=== PATIENT | male | born 1960 | race American Indian/Alaskan Native ===

== ENCOUNTER 2017-02-26 21:05 | Emergency (ER) | payer SELFPAY ==
[2017-02-26 21:35] VITALS: BP 146/94
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
== END 2017-02-27 05:50 | disposition left against medical advice (07) ==
LOC: ED 21:05
DX: M79.604 Pain in right leg (principal); Z53.21 Procedure and treatment not carried out due to patient leaving prior to being seen by health care provider; V89.2XXA Person injured in unspecified motor-vehicle accident, traffic, initial encounter; Y93.89 Activity, other specified; Y99.8 Other external cause status; Y92.410 Unspecified street and highway as the place of occurrence of the external cause